=== PATIENT | male | born 1990 | race Caucasian/White ===

== ENCOUNTER 2021-11-21 10:44 | Emergency (ER) | payer OTHER ==
[2021-11-21 10:48] VITALS: BP 118/77; PULSE 67; TEMP 98.2; BMI 25.8
== END 2021-11-21 11:05 | disposition home or self-care (01) ==
LOC: JER 10:44
DX: Z11.52 Encounter for screening for COVID-19 (principal)
CPT/HCPCS: 99283-25; C9803; U0003; U0005

== ENCOUNTER 2022-03-28 12:30 | Emergency (ER) | payer OTHER ==
[2022-03-28 12:51] VITALS: BP 144/90; PULSE 74; TEMP 97.5; BMI 25.8
== END 2022-03-28 13:58 | disposition left against medical advice (07) ==
LOC: JERFT 12:30
DX: R51.9 Headache, unspecified (principal)
CPT/HCPCS: 99283-25

== ENCOUNTER 2023-11-10 06:47 | Emergency (ER) | payer OTHER ==
[2023-11-10 06:55] VITALS: BP 156/89; PULSE 92; RESP 20; BMI 24.4
[2023-11-10] MEDS ORDERED: KETOROLAC TROMETHAMINE 30 MG/1 ML VIAL IM ONE (07:19)
[2023-11-10] MEDS ORDERED: METOCLOPRAMIDE HCL INJECTION 10 MG/2 ML VIAL IM ONE (07:20)
[2023-11-10] MEDS ORDERED: KETOROLAC TROMETHAMINE 30 MG/1 ML VIAL ONE ×2 (07:51→08:19)
[2023-11-10] MEDS ORDERED: METOCLOPRAMIDE HCL INJECTION 10 MG/2 ML VIAL ONE (07:51)
== END 2023-11-10 09:33 | disposition home or self-care (01) ==
LOC: JER 06:47
PROC: 3E023GC Introduction of Other Therapeutic Substance into Muscle, Percutaneous Approach (ICD-10-PCS; principal; 2023-11-10)
PROC: 3E0233Z Introduction of Anti-inflammatory into Muscle, Percutaneous Approach (ICD-10-PCS; 2023-11-10)
DX: R51.9 Headache, unspecified (principal); G89.29 Other chronic pain; J32.2 Chronic ethmoidal sinusitis
CPT/HCPCS: 70450-TC; 99284-25

== ENCOUNTER 2024-06-17 10:55 | Emergency (ER) | payer OTHER ==
[2024-06-17 11:09] VITALS: BP 157/78; PULSE 78; RESP 16; TEMP 97.7; BMI 25.1
[2024-06-17] MEDS ORDERED: OXYMETAZOLINE 0.05% NASAL SOLUTION 15 ML BOTTLE NS PRN (11:32)
[2024-06-17] MEDS ORDERED: ACETAMINOPHEN 325 MG TABLET (FP) ONE (11:58)
[2024-06-17] MEDS: ACETAMINOPHEN 325 MG TABLET (FP) PO ONE (12:02)
== END 2024-06-17 13:36 | disposition home or self-care (01) ==
LOC: JER 10:55 → JERFT 10:55
DX: J32.9 Chronic sinusitis, unspecified (principal); R09.81 Nasal congestion; R51.9 Headache, unspecified; R50.9 Fever, unspecified; R68.84 Jaw pain; Z20.822 Contact with and (suspected) exposure to COVID-19
CPT/HCPCS: 0241U-QW; 99283-25

== ENCOUNTER 2024-08-30 05:21 | Observation (INO) | payer OTHER ==
[2024-08-30] MEDS ORDERED: ACETAMINOPHEN INJECTION 100 ML ONE (05:51)
[2024-08-30] MEDS: ACETAMINOPHEN 1000 MG/100 ML BAG IVPB ONE (06:17)
[2024-08-30 07:18] LABS: BASO % 0.4 % (0-2.0); EOS % 3.2 % (0-4.5); HEMATOCRIT 43.1 % (35.4-49); HEMOGLOBIN 14.7 GM/dL (11.7-16.9); LYMPH % 24.9 % (8-40); MCH 29.2 pg (25.7-33.7); MCHC 34.1 g/dl (32.0-35.9); MEAN CELL VOLUME 85.6 fl (80-96); MEAN PLT VOLUME 8.9 fl (7.5-11.1); NEUT % 65.5 % (42.8-82.8); PLATELET COUNT 214 10^3/uL (134-434); RBC 5.03 M/mm3 (4.00-5.60); RDW 13.4 % (11.9-15.9); WHITE BLOOD COUNT 9.2 K/mm3 (4.0-10.0)
[2024-08-30 07:36] LABS: POTASSIUM 3.4 mmol/L (3.5-5.1)
[2024-08-30 07:38] LABS: CALCIUM 8.9 mg/dL (8.5-10.1)
[2024-08-30 07:39] LABS: ALBUMIN 4.4 g/dl (3.4-5.0); BLOOD UREA NITROGEN 8.2 mg/dL (7-18)
[2024-08-30 07:42] LABS: CREATININE 0.7 mg/dL (0.55-1.3)
[2024-08-30 07:44] LABS: BILIRUBIN,TOTAL 0.8 mg/dL (0.2-1); TOT PROT 7.5 g/dl (6.4-8.2)
[2024-08-30 08:08] LABS: EPI CELLS 4 /uL (0-25.1); HYALINE CASTS 1 /uL (0-3.1); URINE APPEARANCE CLEAR; URINE BACTERIA 2 /uL (0-1359); URINE BILIRUBIN NEGATIVE (NEGATIVE); URINE COLOR YELLOW; URINE GLUCOSE (UA) NEGATIVE (NEGATIVE); URINE KETONE 1+ (NEGATIVE); URINE LEUK ESTERASE NEGATIVE (NEGATIVE); URINE NITRITE NEGATIVE (NEGATIVE); URINE PROTEIN 1+ (NEGATIVE); URINE RBC 86 /uL (0-23.9); URINE WBC 16 /uL (0-25.8)
[2024-08-30 10:43] LABS: INR 1.04 (0.83-1.09); PROTHROMBIN TIME (PATIENT) 11.9 SEC (9.7-13.0)
[2024-08-30 10:46] LABS: ACTIVATED PTT 32.5 SECONDS (25.2-36.5)
[2024-08-30] MEDS: SODIUM CHLORIDE 0.9% 500 ML INFUS.BAG IV ONE (13:19)
[2024-08-30 15:35] VITALS: BMI 27.1
[2024-08-30 18:47] LABS: HIV INTERPRETATION NEGATIVE (NEGATIVE)
[2024-08-30] MEDS: LACTATED RINGERS SOLUTION 1,000 ML/1,000 ML INFUS.BAG IV SCH (20:33)
[2024-08-31 07:46] VITALS: RESP 18
[2024-08-31 09:06] LABS: BASO % 0.7 % (0-2.0); EOS % 8.5 % (0-4.5); HEMOGLOBIN 13.4 GM/dL (11.7-16.9); LYMPH % 32.8 % (8-40); MCH 28.5 pg (25.7-33.7); MCHC 32.6 g/dl (32.0-35.9); MEAN CELL VOLUME 87.5 fl (80-96); MONO % 7.9 % (3.8-10.2); NEUT % 50.1 % (42.8-82.8); PLATELET COUNT 194 10^3/uL (134-434); RBC 4.69 M/mm3 (4.00-5.60); RDW 13.6 % (11.9-15.9); WHITE BLOOD COUNT 7.3 K/mm3 (4.0-10.0)
[2024-08-31 09:19] LABS: POTASSIUM 3.6 mmol/L (3.5-5.1)
[2024-08-31 09:26] LABS: CALCIUM 8.5 mg/dL (8.5-10.1)
[2024-08-31 09:27] LABS: BILIRUBIN,DIRECT 0.1 mg/dL (0.0-0.2); BLOOD UREA NITROGEN 12.2 mg/dL (7-18)
[2024-08-31 09:29] LABS: ALBUMIN 3.4 g/dl (3.4-5.0)
[2024-08-31 09:30] LABS: BILIRUBIN,TOTAL 0.2 mg/dL (0.2-1); CREATININE 0.7 mg/dL (0.55-1.3); TOT PROT 6.2 g/dl (6.4-8.2)
[2024-08-31 17:03] LABS: EPI CELLS 1 /uL (0-25.1); HYALINE CASTS 0 /uL (0-3.1); PH,URINE 6.5 (5.0-8.0); URINE APPEARANCE CLEAR; URINE BACTERIA 3 /uL (0-1359); URINE BILIRUBIN NEGATIVE (NEGATIVE); URINE COLOR YELLOW; URINE GLUCOSE (UA) NEGATIVE (NEGATIVE); URINE KETONE NEGATIVE (NEGATIVE); URINE LEUK ESTERASE NEGATIVE (NEGATIVE); URINE NITRITE NEGATIVE (NEGATIVE); URINE PROTEIN NEGATIVE (NEGATIVE); URINE RBC 16 /uL (0-23.9); URINE UROBILINOGEN 0.2 mg/dL (0.2-1.0); URINE WBC 6 /uL (0-25.8)
[2024-08-31 17:10] LABS: METHADONE, UR NEGATIVE (NEGATIVE); OPIATES, URI NEGATIVE (NEGATIVE); URINE BARBITURATES NEGATIVE (NEGATIVE); URINE BENZODIAZEPINES NEGATIVE (NEGATIVE)
[2024-08-31 17:12] LABS: PHENCYCLIDINE,URINE NEGATIVE (NEGATIVE)
[2024-08-31] MEDS: ENOXAPARIN NA (PORCINE) 40 MG/0.4 ML DISP.SYRIN SQ SCH (17:16)
[2024-08-31 17:23] LABS: COCAINE, UR POSITIVE (NEGATIVE); URINE AMPHETAMINES NEGATIVE (NEGATIVE)
[2024-08-31] MEDS: LACTATED RINGERS SOLUTION 1,000 ML/1,000 ML INFUS.BAG IV SCH (20:56)
[2024-09-01 08:21] LABS: EOS % 6.1 % (0-4.5); HEMATOCRIT 42.9 % (35.4-49); HEMOGLOBIN 13.9 GM/dL (11.7-16.9); LYMPH % 35.7 % (8-40); MCH 28.5 pg (25.7-33.7); MCHC 32.4 g/dl (32.0-35.9); MEAN CELL VOLUME 87.9 fl (80-96); MEAN PLT VOLUME 9.1 fl (7.5-11.1); MONO % 7.4 % (3.8-10.2); NEUT % 49.8 % (42.8-82.8); PLATELET COUNT 199 10^3/uL (134-434); RBC 4.88 M/mm3 (4.00-5.60); RDW 13.5 % (11.9-15.9); WHITE BLOOD COUNT 6.2 K/mm3 (4.0-10.0)
[2024-09-01 08:40] LABS: ALBUMIN 3.6 g/dl (3.4-5.0); MAGNESIUM 1.6 mg/dL (1.8-2.4)
[2024-09-01 08:42] LABS: CALCIUM 9.4 mg/dL (8.5-10.1)
[2024-09-01 08:44] LABS: BILIRUBIN,TOTAL 0.4 mg/dL (0.2-1); CREATININE 0.6 mg/dL (0.55-1.3); TOT PROT 6.6 g/dl (6.4-8.2)
[2024-09-01] MEDS: MAGNESIUM OXIDE 400 MG TABLET (FP) PO ONE (11:09)
[2024-09-01] MEDS: LACTATED RINGERS SOLUTION 1,000 ML/1,000 ML INFUS.BAG IV SCH (18:04)
[2024-09-02 09:53] LABS: EOS % 3.6 % (0-4.5); HEMATOCRIT 43.2 % (35.4-49); HEMOGLOBIN 14.6 GM/dL (11.7-16.9); LYMPH % 30.8 % (8-40); MCH 28.9 pg (25.7-33.7); MCHC 33.9 g/dl (32.0-35.9); MEAN CELL VOLUME 85.5 fl (80-96); MEAN PLT VOLUME 8.9 fl (7.5-11.1); MONO % 6.4 % (3.8-10.2); NEUT % 58.2 % (42.8-82.8); PLATELET COUNT 208 10^3/uL (134-434); RBC 5.05 M/mm3 (4.00-5.60); WHITE BLOOD COUNT 6.3 K/mm3 (4.0-10.0)
[2024-09-02 09:59] LABS: POTASSIUM 3.8 mmol/L (3.5-5.1)
[2024-09-02 10:11] LABS: ALBUMIN 3.7 g/dl (3.4-5.0); BLOOD UREA NITROGEN 11.8 mg/dL (7-18)
[2024-09-02 10:13] LABS: MAGNESIUM 1.7 mg/dL (1.8-2.4)
[2024-09-02 10:14] LABS: CREATININE 0.7 mg/dL (0.55-1.3)
[2024-09-02 10:16] LABS: BILIRUBIN,TOTAL 0.3 mg/dL (0.2-1)
[2024-09-02 10:45] LABS: CALCIUM 9.3 mg/dL (8.5-10.1)
[2024-09-02 10:59] VITALS: BP 148/76; PULSE 68; TEMP 97.5
== END 2024-09-02 12:51 | disposition home or self-care (01) ==
LOC: JER 05:21 → JERBED 13:26 → OBSVTOIN 14:05 → INTOOBSV 14:05 → J8W 14:39
PROVIDERS: ADMIT Internal Medicine; ATTEND Nurse Practitioner Family
PROC: 3E023GC Introduction of Other Therapeutic Substance into Muscle, Percutaneous Approach (ICD-10-PCS; principal; 2024-08-30)
PROC: 3E0337Z Introduction of Electrolytic and Water Balance Substance into Peripheral Vein, Percutaneous Approach (ICD-10-PCS; 2024-08-30)
PROC: 3E033NZ Introduction of Analgesics, Hypnotics, Sedatives into Peripheral Vein, Percutaneous Approach (ICD-10-PCS; 2024-08-30)
DX: M62.82 Rhabdomyolysis (principal); K76.0 Fatty (change of) liver, not elsewhere classified; R74.8 Abnormal levels of other serum enzymes; R94.5 Abnormal results of liver function studies; F14.90 Cocaine use, unspecified, uncomplicated; F19.90 Other psychoactive substance use, unspecified, uncomplicated; F17.200 Nicotine dependence, unspecified, uncomplicated
CPT/HCPCS: 0241U-QW; 36415; 71046-TC-FY; 74177-TC; 76705-TC; 76775-TC; 80048; 80053; 80076; 80307; 81003; 82550; 82553; 83605; 83690; 83735; 85025; 85610; 85730; 86707; 86803; 87086; 87350; 87389; 87517; 96361; 96372; 96374; 99285-25; G0378; J0131